=== PATIENT | male | born 1950 | race African-American/Black ===

== ENCOUNTER 2021-09-02 11:35 | Emergency (ER) | payer BC, MEDICARE ==
[~2021-09-02] VITALS: Ht 182.9 cm; Wt 111.0 kg
[2021-09-02 11:49] VITALS: BP 147/88
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
--- NOTE | 2021-09-02 13:11 | RAD ---
Left forearm 2 views, left hand 3 views. HISTORY: Pain and swelling, fall Left hand 3 views were taken the left hand. There is marked arthritis at the first carpal metacarpal joint with hypertrophic spurring. There is no acute fracture noted in the left hand. There is mild arthritis at the interphalangeal joints of the fingers. There is deformity of the distal radius from an old heale d fracture. There is deformity of the distal ulna from an old fracture. There is arthritis at the rad iocarpal joint. Left forearm 2 views were taken of the left forearm. There is no acute fracture. Again noted is the deformity of t he distal radius and ulna from old fractures. IMPRESSION: 1. No acute fracture left forearm. 2. Deformity the distal radius and ulna from old fractures. 3. Arthritis at the radiocarpal joint. 4. Arthritis at the first carpal metacarpal joint. 5. No acute fracture left hand. Electronically signed by: Sanjay Alberts MD (09/02/2021 1:08 PM) [id number]
--- NOTE | 2021-09-02 13:45 | RAD ---
CT MAXILLOFACIAL WITHOUT CONTRAST, CT HEAD AND C-SPINE WO Clinical indications: Reason: fall, left face injury /head injury COMPARISON: None available. NONCONTRAST HEAD CT Technique: Noncontrast axial cross sectional scanning of the head was performed. PQRS compliance Statement One or more of the following individualized dose reduction techniques were utilized for this study: 1. Automated exposure control 2. Adjustment of the mA and/or kV according to patient size 3. Use of iterative reconstruction technique Findings: No acute intracranial hemorrhage or midline shift or mass-effect or hydrocephalus or extra- axial fluid collection is seen. There is small area of encephalomalacia involving the inferior medial aspect of the right frontal lobe consistent with an old cortical infarct. No skull fracture or pneum ocephalus is seen. No opacification of the mastoid sinuses or the middle ear cavities is seen. IMPRESSION: No acute intracranial abnormality is seen. NONCONTRAST CERVICAL SPINE CT: TECHNIQUE: Noncontrast helical CT scanning of the cervical spine was performed. Multiplanar 2-D recon structions were generated. FINDINGS: No acute fracture or discitis or lytic process or anterolisthesis is evident. There is dege nerative endplate spurring and disc space narrowing throughout the cervical spine most prominent at C 6-7. There is a moderate AP dimensional spinal canal stenosis at this level secondary to endplate spu rring and diffuse disc protrusion produce narrows the AP dimension spinal canal down to 6 mm. There i s multilevel neural foraminal narrowing most severe at C3-4 on the left side. IMPRESSION: No acute fracture. Additional findings as discussed above. NONCONTRAST MAXILLOFACIAL BONE CT STUDY TECHNIQUE: Noncontrast helical CT scanning of the maxillofacial bones was performed. Multiplanar 2-D reconstructions were generated. FINDINGS: The orbits and orbital floors are intact. No periorbital soft tissue edema or hematoma is e vident. There is no opacification or air-fluid levels of the paranasal sinuses. The maxilla and ptery goid plates are intact. The nasal spine and nasal bones are intact. Zygoma and zygomatic arch is inta ct on both sides. The mandible is intact. Temporomandibular joints are normally aligned. IMPRESSION: No acute maxillofacial bone fracture. Electronically signed by: Hakeem Everett MD (09/02/2021 1:42 PM) [id number]
--- NOTE | 2021-09-02 13:48 | RAD ---
XR LT WRIST 3VIEWS Clinical indications: Fall with pain and swelling. COMPARISON: None available. Findings: There is deformity of the distal left radius and ulna due to old healed fractures. Old non united fracture fragments of the ulnar styloid process are seen. No acute-appearing fracture is evide nt. Radial carpal articulation is maintained. The scaphoid bone appears intact. 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 IMPRESSION: No acute fracture. Electronically signed by: Hakeem Everett MD (09/02/2021 1:45 PM) [id number]
[2021-09-02] MEDS ORDERED: HYDR-2155 PO (14:05)
== END 2021-09-02 14:20 | disposition home or self-care (01) ==
LOC: ER 11:35
DX: S05.12XA Contusion of eyeball and orbital tissues, left eye, initial encounter (principal); S69.92XA Unspecified injury of left wrist, hand and finger(s), initial encounter; W01.0XXA Fall on same level from slipping, tripping and stumbling without subsequent striking against object, initial encounter; Y93.89 Activity, other specified; Y92.89 Other specified places as the place of occurrence of the external cause; Y99.8 Other external cause status
CPT/HCPCS: 29125; 70450; 70486; 72125; 73090; 73110; 73130; 99284